=== PATIENT | male | born 1980 | race Caucasian/White ===

== ENCOUNTER 2019-02-07 23:14 | Emergency (ER) | payer SELFPAY ==
--- NOTE | 2019-02-07 23:21 | ED Physician Documentation ---
General Adult - HISTORIAN Historian: patient - HPI Stated Complaint: abdominal pain x 3 hours and chest pain Chief Complaint: Abdominal Pain Onset: hours (3) Timing: still present Severity: moderate Further Comments: yes (He states about two- three hours ago he started to have what he indicates is epigastric abdominal pain and after discussion states he had chest pain around noon and the pain currently is abdomen and up into his chest. He reports no fever. Mild nausea (no vomiting) He has no sick contacts. Normal BM this am. No dysuria or urinary issues. No chest pain radiation. No sweating or diziness) - ROS CONST: no problems EYES/ENT: none CVS/RESP: none GI/: none MS/SKIN/LYMPH: none NEURO/PSYCH: denies: headache - PAST HX Past History: none Allergies/Adverse Reactions: Allergies Allergy/AdvReac Type Severity Reaction Status Date / Time No Known Allergies Allergy Verified 02/07/19 23:22 Home Medications: Ambulatory Orders Medication Instructions Recorded NK 02/24/15 - SOCIAL HX Smoking History: cigarettes Alcohol Use: heavy Drug Use: none - FAMILY HX Family History: No - VITAL SIGNS Vital Signs: Vital Signs Temp Pulse Resp BP Pulse Ox 122/66 04/01/15 18:32 - REVIEWED ASSESSMENTS Nursing Assessment Reviewed: Yes Vitals Reviewed: Yes Progress - Progress Progress: 0008: reports pain is not improved in abdomen. DG 0035: states pain is (per his direction) epigastric and up mid chest - continues to states pain with palpation. Discussed current findings DG 0059: discussed current results - he states this cannot be all negative due to the pain under both ribs and mid chest. States pain is "somewhat" improved. He is able to rest while talking DG ED Results Lab/Radiology - Radiology Radiology Impressions: Obstructive series with chest x-ray Clinical history: Chest and abdominal pain for 1 hr. Findings: Examination of the chest in single upright view demonstrates the lungs to be clear. Cardiovascular and mediastinal silhouettes are within normal limits. Examination abdomen in supine and upright views demonstrates gas and stool in the colon. There is no obstruction or free air. Properitoneal fat lines are preserved. Impression: 1. Negative study. Electronically signed on Feb 08, 2019 12:03:55 AM CDT by: Sumeet Singleton CT abdomen and pelvis without contrast Clinical history: Diffuse abdominal pain. Technique: CT of the abdomen and pelvis is performed without oral or intravenous administration of contrast. Sagittal and coronal reconstructions were performed by the technologist. Findings: Liver and spleen demonstrate normal attenuation without focal defect. The gallbladder is normally distended. There is no pancreatic or adrenal abnormality. The kidneys are of normal size, shape and position. There is no retroperitoneal mass or significant adenopathy. Appendix is visualized and is within normal limits. Gas and stool are present the colon. Bladder is unremarkable. There is no free fluid in the pelvis or abdomen. Impression: 1. Negative appendix. 2. Negative noncontrast CT of the abdomen and pelvis. Electronically signed on Feb 08, 2019 12:48:47 AM CDT by: Sumeet Singleton CT of the chest without contrast Clinical history: Chest pain. Technique: CT of the chest is performed in contiguous axial slices without the use of contrast. Sagittal and coronal reconstructions were performed by the technologist Findings: There is dependent atelectasis in the lungs. The lungs are free of coalescent infiltrate. There is no pleural effusion or significant pleural thickening. Central airways are patent. There is no mediastinal or hilar mass or significant adenopathy. Bony structures of the thorax are intact. Impression: 1. Negative noncontrast CT of the chest. Electronically signed on Feb 08, 2019 12:50:23 AM CDT by: Sumeet Singleton General Adult Physical Exam - PHYSICAL EXAM GENERAL APPEARANCE: moderate distress EENT: eye inspection normal, ENT inspection normal, no signs of dehydration NECK: normal inspection RESPIRATORY: no resp distress, breath sounds normal, other (mid chest tender with palpation) CVS: reg rate & rhythm, heart sounds normal, equal pulses ABDOMEN: soft, normal bowel sounds, no distension, tenderness (diffuse pain with palpation ) BACK: normal inspection, no CVA tenderness SKIN: warm/dry EXTREMITIES: non-tender, normal range of motion, no evidence of injury, no edema NEURO: oriented X3 Discharge Clincal Impression: Abdominal pain Qualifiers: Abdominal location: generalized Qualified Code(s): R10.84 - Generalized abdominal pain Referrals: Primary Doctor,No [Primary Care Provider] - 2 Days Comments: 1. Omeprazole 40 mg take 1 by mouth daily 2. Zofran 4 mg take 1 by mouth every 8 hours as needed for nausea 3. Tylenol as directed as needed for pain 4. Decrease caffeine, smoking and drinking 5. Follow up in 2 days with PCP for further studies 6. OTC med as needed for constipation 7. Increase fluids 8. Return to ER for any increasing concerns Condition: Stable Disposition: 01 HOME, SELF-CARE Decision to Admit: NO Date of Decison to Admit: 02/08/19 Decision Time: 01:24
[2019-02-07 23:22] VITALS: BP 147/70
[2019-02-07] MEDS ORDERED: ASPIRIN 81 MG CHEW TAB PO ONE (23:25)
[2019-02-07] MEDS ORDERED: KETOROLAC TROMETHAMINE 30 MG/1ML VIAL IV ONE (23:26)
[2019-02-07] MEDS ORDERED: 0.9 % SODIUM CHLORIDE 1,000 ML IV ONE (23:26)
[2019-02-08 00:01] LABS: MEAN CORPUSCULAR HEMOGLOBIN 33.1 pg (28.0-34.0)
[2019-02-08 00:03] LABS: eGFR (Non-African) > 60
[2019-02-08] MEDS ORDERED: fentaNYL CITRATE/PF 100 MCG/2 ML INJ. IVP ONE (00:06)
[2019-02-08] MEDS ORDERED: fentaNYL CITRATE/PF 100 MCG/2 ML INJ. ONE (00:08)
[2019-02-08 00:16] LABS: EOSINOPHILS % 7 % (0-7); MONOCYTES % 5 % (0-11); SEGMENTED NEUTROPHILS % 50 % (39-79)
[2019-02-08 00:17] LABS: BASOPHILS % 0 % (0-2); PLT EST. EST. AGREES W/PLT CT
[2019-02-08] MEDS ORDERED: 0.9 % SODIUM CHLORIDE 1,000 ML IV ONE (00:27)
[2019-02-08] MEDS ORDERED: PANTOPRAZOLE SODIUM 80 MG in 0.9 % SODIUM CHLORIDE 50 ML IV ONE (00:27)
[2019-02-08 07:06] LABS: CANNABINOIDS NEGATIVE ng/mL (< 50); METHYLENEDIOXYMETHAMPHETAMINE NEGATIVE ng/mL (<500)
[2019-02-08 07:08] LABS: APPEARANCE,URINE CLEAR (CLEAR); COLOR,URINE YELLOW (YELLOW); OCCULT BLOOD,URINE NEGATIVE (NEGATIVE); PH URINE 5.5 (5.0 - 8.0); UROBILINOGEN URINE 0.2 Eu (0.2-1.0)
--- NOTE | 2019-02-08 09:43 | Diagnostic Imaging Report ---
JOSEPHINE BOWERS [facility] [id number] [facility] [address] [place], [place]. [address] Report Submission Date: Feb 08, 2019 12:50:23 AM CDT Patient Study Name: LIAT JOYCE Date: Feb 08, 2019 12:17:35 AM CDT Modality Type: CT\SR Gender: M Description: CT CHEST W/O CONTRAST : 84 Institution: [facility] Physician: JOSEPHINE BOWERS CT of the chest without contrast Clinical history: Chest pain. Technique: CT of the chest is performed in contiguous axial slices without the use of contrast. Sagittal and coronal reconstructions were performed by the technologist Findings: There is dependent atelectasis in the lungs. The lungs are free of coalescent infiltrate. There is no pleural effusion or significant pleural thickening. Central airways are patent. There is no mediastinal or hilar mass or significant adenopathy. Bony structures of the thorax are intact. Impression: 1. Negative noncontrast CT of the chest. Electronically signed on Feb 08, 2019 12:50:23 AM CDT by: Sumeet CAR
--- NOTE | 2019-02-08 09:44 | Diagnostic Imaging Report ---
JOSEPHINE BOWERS [facility] [address] [facility] [address] [place], [place]. [address] Report Submission Date: Feb 08, 2019 12:48:47 AM CDT Patient Study Name: LIAT JOYCE Date: Feb 08, 2019 12:14:05 AM CDT Modality Type: CT\SR Gender: M Description: CT ABD PELVIS W/O CO : 82 Institution: [facility] Physician: JOSEPHINE BOWERS CT abdomen and pelvis without contrast Clinical history: Diffuse abdominal pain. Technique: CT of the abdomen and pelvis is performed without oral or intravenous administration of contrast. Sagittal and coronal reconstructions were performed by the technologist. Findings: Liver and spleen demonstrate normal attenuation without focal defect. The gallbladder is normally distended. There is no pancreatic or adrenal abnormality. The kidneys are of normal size, shape and position. There is no retroperitoneal mass or significant adenopathy. Appendix is visualized and is within normal limits. Gas and stool are present the colon. Bladder is unremarkable. There is no free fluid in the pelvis or abdomen. Impression: 1. Negative appendix. 2. Negative noncontrast CT of the abdomen and pelvis. Electronically signed on Feb 08, 2019 12:48:47 AM CDT by: Sumeet CAR
--- NOTE | 2019-02-08 09:44 | Diagnostic Imaging Report ---
JOSEPHINE BOWERS [facility] [id number] [facility] [address] [place], [place]. [address] Report Submission Date: Feb 08, 2019 12:03:55 AM CDT Patient Study Name: LIAT JOYCE Date: Feb 07, 2019 11:32:31 PM CDT Modality Type: DX Gender: M Description: ABD SERIES PA CHEST : 82 Institution: [facility] Physician: JOSEPHINE BOWERS Obstructive series with chest x-ray Clinical history: Chest and abdominal pain for 1 hr. Findings: Examination of the chest in single upright view demonstrates the lungs to be clear. Cardiovascular and mediastinal silhouettes are within normal limits. Examination abdomen in supine and upright views demonstrates gas and stool in the colon. There is no obstruction or free air. Properitoneal fat lines are preserved. Impression: 1. Negative study. Electronically signed on Feb 08, 2019 12:03:55 AM CDT by: Sumeet CAR
== END 2019-02-08 01:30 | disposition home or self-care (01) ==
LOC: ED 23:14
DX: R10.84 Generalized abdominal pain (principal)
CPT/HCPCS: 36415; 71250; 74022; 74176; 80053; 80320; 80377; 81002; 83690; 84484; 85025; 85379; 93005; 96374; 96375; 99284; 99285; J1885; J3010; J7030; G0480; G0481; S1016